=== PATIENT | female | born 1950 | race Caucasian/White ===

== ENCOUNTER → 2020-12-17 | Outpatient (CLI) | payer MEDICARE, OTHER ==
[~2020-12-17] MED LIST: ALPR1TAB2 PO; CETI10TA76 PO; GADOTERATE 10 MMOL/20ML SYR ONE; LISI-170 PO; OMEP20TA62 PO; SERT100T PO; SIMV20TA19 PO
== END | disposition home or self-care (01) ==
LOC: CFH 13:23
PROVIDERS: ATTEND Psychiatry & Neurology Neurology
DX: M51.34 Other intervertebral disc degeneration, thoracic region (principal); R20.0 Anesthesia of skin; R15.9 Full incontinence of feces
CPT/HCPCS: 72157; 72197; A9575